=== PATIENT | female | born 1965 | race African-American/Black ===

== ENCOUNTER 2016-07-28 11:45 | Emergency (ER) | payer BC ==
[~2016-07-28] VITALS: Ht 177.8 cm; Wt 78.5 kg
[~2016-07-28 11:45] MED LIST: LEVE100020 PO
--- NOTE | 2016-07-28 12:05 | PHYS DOC ---
Past Medical History Past Medical History: Diabetes-Type II, Hypertension, Seizure Additional Past Medical Histor: ENDOMETRIOSIS Past Surgical History: Additional Past Surgical Histo: (L) ANKLE REPAIR Alcohol Use: None Drug Use: None Adult General Chief Complaint Chief Complaint: HEADACHE HPI HPI Patient is a 51 year old [place] female who presents with ache. She states she gets headaches time to time but this will last longer and is more intense. She states it's constant sensation to her eye lateral temporal areas, she does feel somewhat nauseated. She denies any fevers but felt some chills. She denies any neck stiffness or nuchal rigidity. She denies any confusion. She has been having some nausea but has not vomited. She has been taking Advil without any relief. She denies any dysuria. Review of Systems Review of Systems Constitutional: Denies fever or chills [] Eyes: Denies change in visual acuity, redness, or eye pain [] HENT: Denies nasal congestion or sore throat [] Respiratory: Denies cough or shortness of breath [] Cardiovascular: No additional information not addressed in HPI [] GI: Denies abdominal pain, nausea, vomiting, bloody stools or diarrhea [] : Denies dysuria or hematuria [] Musculoskeletal: Denies back pain or joint pain [] Integument: Denies rash or skin lesions [] Neurologic: Denies focal weakness or sensory changes, denies headache Endocrine: Denies polyuria or polydipsia [] Current Medications Current Medications Current Medications Medications (Trade) Dose Ordered Sig/Delvis Start Time Stop Time Status Last Admin Dose Admin Diphenhydramine HCl (Benadryl) 25 mg 1X ONCE 07/28/16 13:30 07/28/16 13:32 DC 07/28/16 13:37 25 MG Fentanyl Citrate (Fentanyl 2ml Vial) 50 mcg 1X ONCE 07/28/16 15:30 07/28/16 15:31 DC 07/28/16 15:33 50 MCG Lidocaine HCl (Lta Kit) 4 ml 1X ONCE 07/28/16 16:30 07/28/16 16:35 DC 07/28/16 16:47 4 ML Methylprednisolone Sodium Succinate (SOLU-Medrol 125MG VIAL) 125 mg 1X ONCE 07/28/16 15:30 07/28/16 15:31 DC 07/28/16 15:32 125 MG Promethazine HCl 12.5 mg/Sodium Chloride 50.5 ml @ 151.5 mls/ hr PRN Q6HRS PRN 07/28/16 13:30 07/28/16 14:08 DC Sodium Chloride 1,000 ml @ 1,000 mls/hr 1X ONCE 07/28/16 12:30 07/28/16 13:29 DC 07/28/16 12:47 1,000 MLS/HR Allergies Allergies Allergies Coded Allergies Type Severity Reaction Last Updated Verified NSAIDS (Non-Steroidal Anti-Inflamma Allergy Unknown 05/05/14 No codeine Allergy Unknown 05/05/14 No Physical Exam Physical Exam Constitutional: Well developed, well nourished, no acute distress, non-toxic appearance. [] HENT: Normocephalic, atraumatic, bilateral external ears normal, oropharynx moist, no oral exudates, nose normal. [] Eyes: PERRLA, EOMI, conjunctiva normal, no discharge. [] Neck: Normal range of motion, no tenderness, supple, no stridor. [] Cardiovascular:Heart rate regular rhythm, no murmur [] Lungs & Thorax: Bilateral breath sounds clear to auscultation [] Abdomen: Bowel sounds normal, soft, no tenderness, no masses, no pulsatile masses. [] Skin: Warm, dry, no erythema, no rash. [] Back: No tenderness, no CVA tenderness. [] Extremities: No tenderness, no cyanosis, no clubbing, ROM intact, no edema. [] Neurologic: Alert and oriented X 3, normal motor function, normal sensory function, no focal deficits noted. [] Psychologic: Affect normal, judgement normal, mood normal. [] Current Patient Data Vital Signs Vital Signs Date Time Temp Pulse Resp B/P (MAP) Pulse Ox O2 Delivery O2 Flow Rate FiO2 07/28/16 15:33 20 100 Room Air 07/28/16 15:30 68 172/87 (115) 07/28/16 12:01 98.2 98.2 Lab Values Laboratory Tests Test 07/28/16 12:45 White Blood Count 6.7 x10^3/uL (4.0-11.0) Red Blood Count 4.75 x10^6/uL (3.50-5.40) Hemoglobin 11.6 g/dL (12.0-15.5) L Hematocrit 35.8 % (36.0-47.0) L Mean Corpuscular Volume 76 fL (79-100) L Mean Corpuscular Hemoglobin 24 pg (25-35) L Mean Corpuscular Hemoglobin Concent 32 g/dL (31-37) Red Cell Distribution Width 14.2 % (11.5-14.5) Platelet Count 125 x10^3/uL (140-400) L Neutrophils (%) (Auto) 84 % (31-73) H Lymphocytes (%) (Auto) 10 % (24-48) L Monocytes (%) (Auto) 6 % (0-9) Eosinophils (%) (Auto) 0 % (0-3) Basophils (%) (Auto) 1 % (0-3) Neutrophils # (Auto) 5.7 x10^3uL (1.8-7.7) Lymphocytes # (Auto) 0.7 x10^3/uL (1.0-4.8) L Monocytes # (Auto) 0.4 x10^3/uL (0.0-1.1) Eosinophils # (Auto) 0.0 x10^3/uL (0.0-0.7) Basophils # (Auto) 0.0 x10^3/uL (0.0-0.2) Urine Collection Type Void Urine Color Yellow Urine Clarity Turbid Urine pH 7.0 Urine Specific Sylvester <=1.005 Urine Protein Negative mg/dL (NEG-TRACE) Urine Glucose (UA) Negative mg/dL (NEG) Urine Ketones (Stick) Negative mg/dL (NEG) Urine Blood Negative (NEG) Urine Nitrite Negative (NEG) Urine Bilirubin Negative (NEG) Urine Urobilinogen Dipstick 0.2 mg/dL (0.2 mg/dL) Urine Leukocyte Esterase Negative (NEG) Urine RBC 0 /HPF (0-2) Urine WBC Occ /HPF (0-4) Urine Squamous Epithelial Cells Many /LPF Urine Bacteria Few /HPF (0-FEW) Urine Hyaline Casts Few /HPF Urine Yeast Present /HPF Sodium Level 142 mmol/L (136-145) Potassium Level 3.1 mmol/L (3.5-5.1) L Chloride Level 105 mmol/L (98-107) Carbon Dioxide Level 31 mmol/L (21-32) Anion Gap 6 (6-14) Blood Urea Nitrogen 14 mg/dL (7-20) Creatinine 0.9 mg/dL (0.6-1.0) Estimated GFR (Cockcroft-Gault) 79.9 BUN/Creatinine Ratio 16 (6-20) Glucose Level 161 mg/dL (70-99) H Calcium Level 8.2 mg/dL (8.5-10.1) L Total Bilirubin 0.2 mg/dL (0.2-1.0) Aspartate Amino Transferase (AST) 20 U/L (15-37) Alanine Aminotransferase (ALT) 33 U/L (14-59) Alkaline Phosphatase 158 U/L (46-116) H Total Protein 7.1 g/dL (6.4-8.2) Albumin 3.5 g/dL (3.4-5.0) Albumin/Globulin Ratio 1.0 (1.0-1.7) Laboratory Tests 07/28/16 12:45 Laboratory Tests 07/28/16 12:45 EKG EKG [] Radiology/Procedures Radiology/Procedures [facility] [address] [place] [address] IMAGING REPORT Signed PATIENT: BECKIE HEATH ACCOUNT: [id number] : 1965 LOCATION: ER AGE: 51 SEX: F EXAM STATUS: REG ER ORD. PHYSICIAN: MIRTA ROSARIO MD REASON: headache PROCEDURE: CT HEAD WO CONTRAST CT of the head without contrast, 07/28/2016: History: Headache Comparison is made to a study from 05/05/2014. There is extensive hyperostosis interna. Prominent dural calcifications are present along the falx. The ventricles are within normal limits in size. There is no shift of the midline structures. There is no evidence of acute intracranial hemorrhage or mass effect. IMPRESSION: No acute intracranial abnormality is detected. PQRS Compliance Statement: One or more of the following individualized dose reduction techniques were utilized for this examination: 1. Automated exposure control 2. Adjustment of the mA and/or kV according to patient size 3. Use of iterative reconstruction technique DICTATED and SIGNED BY: ANDREY HASSAN MD DATE: 07/28/16 1248 CC: MIRTA ROSARIO MD; JOSY ZAPATA MD ~ Course & Med Decision Making Course & Med Decision Making Pertinent Labs and Imaging studies reviewed. (See chart for details) CT of the head did not show any acute abnormalities in addition to labs. Patient received Phenergan and Benadryl with slight improvement but she still rates it severe, she received SoluMedrol and intranasal lidocaine in addition to fentanyl. She feels better now is being discharged home with Phenergan and Benadryl as needed. She is to follow-up with primary care physician within next few days. Please she has a serious intracranial or other abnormalities going on. Return precautions given she is agreeable to the plan and being discharged in stable condition this time. Dragon Disclaimer Dragon Disclaimer This electronic medical record was generated, in whole or in part, using a voice recognition dictation system. Departure Departure Impression: Primary Impression: Head ache Disposition: 01 HOME, SELF-CARE Condition: STABLE Referrals: JOSY ZAPATA MD (PCP) Patient Instructions: General Headache Without Cause Additional Instructions: Your headache got better with Phenergan and Benadryl however you still had persistent headache. You therefore received IV Solu-Medrol which is a steroid, you also received lidocaine intranasal. Your being discharged home with Phenergan and you can take [id number] Benadryl. Please follow the instructions on the bottle. Return ER if you have fevers, worsening headache, dizziness, confusion or other concerns. Please follow-up with her primary care physician within the next few days. Scripts Promethazine Hcl (PROMETHAZINE HCL) 25 Mg Tablet 1 TAB PO PRN Q6HRS Y for HEADACHE, #20 TAB Prov: MIRTA ROSARIO MD 07/28/16 Problem Qualifiers Primary Impression: Head ache Headache type: unspecified Headache chronicity pattern: unspecified pattern Intractability: not intractable Qualified Codes: R51 - Headache MIRTA ROSARIO MD Jul 28, 2016 12:05
[2016-07-28] MEDS ORDERED: IV NORMAL SALINE 1000ML BAG 1,000 ML IV ONE (12:30)
[2016-07-28] MEDS ORDERED: diphenhydrAMINE 50 MG/ML VIAL IVP ONE ×2 (12:30→13:30)
--- NOTE | 2016-07-28 12:54 | RAD ---
CT of the head without contrast, 07/28/2016: History: Headache Comparison is made to a study from 05/05/2014. There is extensive hyperostosis interna. Prominent dural calcifications are present along the falx. The ventricles are within normal limits in size. There is no shift of the midline structures. There is no evidence of acute intracranial hemorrhage or mass effect. IMPRESSION: No acute intracranial abnormality is detected. PQRS Compliance Statement: One or more of the following individualized dose reduction techniques were utilized for this examination: 1. Automated exposure control 2. Adjustment of the mA and/or kV according to patient size 3. Use of iterative reconstruction technique
[2016-07-28 13:21] LABS: BILIRUBIN,URINE NEGATIVE (NEG); GLUCOSE,URINE NEGATIVE (NEG); NITRITE,URINE NEGATIVE (NEG); PROTEIN,URINE NEGATIVE (NEG-TRACE); UROBILINOGEN,URINE 0.2 mg/dL (0.2 mg/dL)
[2016-07-28 13:22] LABS: BASO % 1 % (0-3); EOS % 0 % (0-3); HEMATOCRIT 35.8 % (36.0-47.0); HEMOGLOBIN 11.6 g/dL (12.0-15.5); LYMPH # 0.7 x10^3/uL (1.0-4.8); LYMPH % 10 % (24-48); MEAN CORPUSCULAR HEMOGLOBIN 24 pg (25-35); MEAN CORPUSCULAR HGB CONC 32 g/dL (31-37); MEAN CORPUSCULAR VOLUME 76 fL (79-100); MONO % 6 % (0-9); NEUT % 84 % (31-73); PLATELET COUNT 125 x10^3/uL (140-400); RED BLOOD COUNT 4.75 x10^6/uL (3.50-5.40); RED CELL DISTRIBUTION WIDTH 14.2 % (11.5-14.5); WHITE BLOOD COUNT 6.7 x10^3/uL (4.0-11.0)
[2016-07-28 13:28] LABS: BACTERIA,URINE FEW /HPF (0-FEW); RBC,URINE 0 /HPF (0-2); SQUAMOUS EPITHELIAL CELL,UR MANY /LPF; WBC,URINE OCC /HPF (0-4); YEAST,URINE PRESENT /HPF
[2016-07-28] MEDS: PROMETHAZINE 12.5 MG in IV NORMAL SALINE 50ML 50 ML IV PRN ×2 (13:28→14:17)
[2016-07-28] MEDS ORDERED: PROMETHAZINE 12.5 MG in IV NORMAL SALINE 50ML 50 ML IV PRN (13:30)
[2016-07-28 13:43] LABS: CALCIUM 8.2 mg/dL (8.5-10.1); CREATININE 0.9 mg/dL (0.6-1.0); GFR 79.9; POTASSIUM 3.1 mmol/L (3.5-5.1)
[2016-07-28 13:54] LABS: ALBUMIN 3.5 g/dL (3.4-5.0); TOTAL BILIRUBIN 0.2 mg/dL (0.2-1.0); TOTAL PROTEIN 7.1 g/dL (6.4-8.2)
[2016-07-28] MEDS ORDERED: fentaNYL PF VIAL 100 MCG/2 ML VIAL IV ONE (15:30)
[2016-07-28] MEDS ORDERED: methylPREDNISolone SOD SUCC PF 125 MG/2 ML VIAL. IV ONE (15:30)
[2016-07-28] MEDS ORDERED: LIDOCAINE 4% KIT 4 ML SOLUTION. TP ONE (16:30)
[2016-07-28 17:00] VITALS: BP 161/81
[2016-07-28] MEDS ORDERED: PROM25TA10 PO (17:27)
== END 2016-07-28 17:43 | disposition home or self-care (01) ==
LOC: ER 11:45
DX: R51 Headache (principal); R11.0 Nausea
CPT/HCPCS: 36415; 70450; 80053; 81001; 85027; 96361; 96365; 96366; 96375; 96376; 99285; J1200; J2550; J2930; J3010; J7030

== ENCOUNTER 2017-03-29 18:10 | Emergency (ER) | payer SELFPAY, BC ==
[2017-03-29 18:43] LABS: BILIRUBIN,URINE NEGATIVE (NEG); CLARITY,URINE CLEAR; GLUCOSE,URINE NEGATIVE (NEG); NITRITE,URINE NEGATIVE (NEG); PROTEIN,URINE NEGATIVE (NEG-TRACE); UROBILINOGEN,URINE 0.2 mg/dL (0.2 mg/dL)
[2017-03-29 18:49] LABS: BARBITURATES NEG (NEG); BENZODIAZEPINES NEG (NEG); CANNABINOIDS NEG (NEG); COCAINE NEG (NEG); METHADONE NEG (NEG); OPIATES NEG (NEG); PHENCYCLIDINE NEG (NEG)
[2017-03-29 18:50] LABS: BACTERIA,URINE MOD /HPF (0-FEW); COLOR,URINE STRAW; RBC,URINE OCC /HPF (0-2); SQUAMOUS EPITHELIAL CELL,UR MOD /LPF; WBC,URINE OCC /HPF (0-4); YEAST,URINE PRESENT /HPF
[2017-03-29 18:51] LABS: ADD MAN DIFF? NO
[2017-03-29 18:52] LABS: AMPHETAMINE/METHAMPHETAMINE NEG (NEG); ETHANOL, URINE NEG (NEG)
[2017-03-29 18:54] LABS: BASO # 0.1 x10^3/uL (0.0-0.2); BASO % 1 % (0-3); EOS # 0.1 x10^3/uL (0.0-0.7); EOS % 2 % (0-3); HEMATOCRIT 38.7 % (36.0-47.0); HEMOGLOBIN 12.6 g/dL (12.0-15.5); LYMPH # 1.5 x10^3/uL (1.0-4.8); LYMPH % 27 % (24-48); MEAN CORPUSCULAR HEMOGLOBIN 24 pg (25-35); MEAN CORPUSCULAR HGB CONC 33 g/dL (31-37); MEAN CORPUSCULAR VOLUME 74 fL (79-100); MONO # 0.3 x10^3/uL (0.0-1.1); MONO % 6 % (0-9); NEUT # 3.6 x10^3uL (1.8-7.7); NEUT % 64 % (31-73); PLATELET COUNT 147 x10^3/uL (140-400); RED BLOOD COUNT 5.26 x10^6/uL (3.50-5.40); WHITE BLOOD COUNT 5.6 x10^3/uL (4.0-11.0)
[2017-03-29] MEDS: IV NORMAL SALINE 1000ML BAG 1,000 ML IV ×2 (18:58)
[2017-03-29 19:07] LABS: ANION GAP 11 (6-14); BLOOD UREA NITROGEN 21 mg/dL (7-20); CALCIUM 8.8 mg/dL (8.5-10.1); CARBON DIOXIDE 27 mmol/L (21-32); CHLORIDE 104 mmol/L (98-107); CREATININE 0.9 mg/dL (0.6-1.0); GFR 79.9; GLUCOSE 104 mg/dL (70-99); POTASSIUM 3.4 mmol/L (3.5-5.1); SODIUM 142 mmol/L (136-145)
[2017-03-29 19:17] LABS: TROPONINI < 0.017 ng/mL (0.000-0.055)
[2017-03-29 19:23] LABS: THYROID STIM HORMONE (TSH) 2.707 uIU/mL (0.358-3.74)
[2017-03-29] MEDS: cloNIDine HCL 0.1 MG TABLET PO ×2 (20:40)
== END 2017-03-29 21:40 | disposition home or self-care (01) ==
LOC: ER 21:40
DX: G40.909 Epilepsy, unspecified, not intractable, without status epilepticus (principal); E11.9 Type 2 diabetes mellitus without complications; I10 Essential (primary) hypertension; Z90.710 Acquired absence of both cervix and uterus; Z79.899 Other long term (current) drug therapy; Z88.6 Allergy status to analgesic agent; Z88.5 Allergy status to narcotic agent
CPT/HCPCS: 36415; 70450; 71045; 80048; 80307; 81001; 84443; 84484; 85025; 93005; 96361; 96374; 99285-25; J2060; J7030

== ENCOUNTER 2018-09-21 12:00 | Emergency (ER) | payer OTHER ==
[~2018-09-21] VITALS: Ht 177.8 cm; Wt 81.2 kg
[~2018-09-21 12:00] MED LIST changes: +PROM25TA10 PO
[2018-09-21 12:10] VITALS: BP 135/80
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
[2018-09-21] MEDS ORDERED: ORPH100T PO (13:27)
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
== END 2018-09-21 13:34 | disposition home or self-care (01) ==
LOC: ER 12:00
DX: M54.42 Lumbago with sciatica, left side (principal); M25.512 Pain in left shoulder; M25.562 Pain in left knee; M25.572 Pain in left ankle and joints of left foot; E11.9 Type 2 diabetes mellitus without complications; I10 Essential (primary) hypertension; M25.552 Pain in left hip; R10.2 Pelvic and perineal pain; M17.12 Unilateral primary osteoarthritis, left knee; Z90.710 Acquired absence of both cervix and uterus; G89.11 Acute pain due to trauma; Z88.5 Allergy status to narcotic agent; Z88.6 Allergy status to analgesic agent; V49.49XA Driver injured in collision with other motor vehicles in traffic accident, initial encounter; Y93.89 Activity, other specified; Y92.488 Other paved roadways as the place of occurrence of the external cause; Y99.8 Other external cause status
CPT/HCPCS: 72100; 73030; 73502; 73562; 73610; 99284